=== PATIENT | male | born 1990 | race Caucasian/White ===

== ENCOUNTER 2019-09-01 17:58 | Emergency (ER) | payer OTHER ==
[~2019-09-01] VITALS: Ht 182.9 cm; Wt 83.9 kg
== END 2019-09-01 22:26 | disposition home or self-care (01) ==
LOC: ER 17:58
DX: S01.121A Laceration with foreign body of right eyelid and periocular area, initial encounter (principal); W18.09XA Striking against other object with subsequent fall, initial encounter; Y93.89 Activity, other specified; Y92.511 Restaurant or cafe as the place of occurrence of the external cause; Y99.8 Other external cause status